=== PATIENT | female | born 1985 | race Native Hawaiian/Other Pacific Islander ===

== ENCOUNTER 2023-01-09 07:39 | Outpatient (CLI) | payer BC, SELFPAY | END 2023-01-09 07:40 | disposition home or self-care (01) | PROVIDERS: PCP Family Medicine; Referring Provider Family Medicine; Visit Provider Family Medicine | DX: Z00.00 Encounter for general adult medical examination without abnormal findings (principal); E66.01 Morbid (severe) obesity due to excess calories; E11.9 Type 2 diabetes mellitus without complications; L30.1 Dyshidrosis [pompholyx]; Z13.6 Encounter for screening for cardiovascular disorders | CPT/HCPCS: 80053; 80061; 82043; 82570 ==

== ENCOUNTER 2024-01-22 06:56 | Outpatient (CLI) | payer BC, SELFPAY ==
--- OUTSIDE RECORDS SUMMARY | 2024-01-22 06:58 | XMS_ITS | Clinical Summary ---
Author Organization [facility] Address [place], [place] [address] Care Team Providers Care Repairer Recreational Vehicle Name Role Phone Provider, Non-[facility] Primary Care Provider Un available Allergies No known active allergies Medications Medication Sig Dispensed Refills Start Date End Date Status VIT/IRON FUMARATE/FA ( 19 ORAL) Take 1 Tab by mouth once daily. Active lanolin (LANSINOH) ointmentIndicatio ns:S/P section Apply peasized amount to entire nipple area after each feeding and leave on, no need to wash off before . 40 g 10/07/2016 Active docusate (COLACE) 100 mg capsuleIndication s:S/P section Take 2 capsules by mouth 2 times daily if needed for Constipation. 100 capsule 10/07/2016 Active HYDROcodone-aceta minophen, 5-325 mg, (NORCO) per tabletIndications :S/P section Take 1 to 2 tablets by mouth every 4 hours if needed for Pain. Max acetaminophen dose: 4000 mg in 24 hrs. 30 tablet 10/07/2016 Active ibuprofen (ADVIL; MOTRIN) 600 mg tabletIndications :S/P section Take 1 tablet by mouth every 6 hours if needed. Maximum of 3200 mg in 24 hours. 30 tablet 10/07/2016 Active Breast Pump - PurchaseIndicatio ns:S/P section As directed. For home use. Length of need: 99 months. Diagnosis: latch difficulty 1 Device 10/07/2016 Active dibucaine 1% topical (NUPERCAINAL) 1 % ointment Apply a pea sized amount to entire nipple area after each feeding and leave on. No need to wash off before . 28 g 10/07/2016 Active Active Problems Problem Noted Date Diagnosed Date S/P section 10/07/2016 Resolved Problems Problem Noted Date Diagnosed Date Resolved Date Previous delivery a ffecting , antepartum 04/15/2014 10/07/2016 Previous delivery, antepartum condition or complication 10/15/2012 10/07/2016 Immunizations Name Administration Dates Next Due Influenza, IIV3 (Age >=3 years) 05/11/2016,03/26 MMR 10/20/2012 Tdap 02/06/2011,11/15/2010 Social History Tobacco Use Types Packs/Day Years Used Date Smoking Tobacco: Never Passive Smoke Exposure: Never Smokeless Tobacco: Never Tobacco Cessation:Counseling Given: Yes Alcohol Use Standard Drinks/Week Comments No 0 (1 standard drink = 0.6 oz pur e alcohol) Sex and Gender Information Value Date Recorded Sex Assigned at Not on file Gender Identity Not on file Sexual Orientation Not on file Obstetrics History Para Term AB IAB SAB Ectopic Multiple Livin g Live Births 5 3 3 0 1 0 1 0 0 3 3 Date Outcome GA Total Labor Labor/2nd/3rd Weight Sex Type Anes PTL Tegan A1 A5 Name Clin 2010 Term 39w 2d 7h 00m/ 3.68 kg (8 lb 1.8 oz) M C-Sect ion Spinal N Livin g 8 9 ERASTO CORRIGAN (IMAN ICA ALBPriyank) A Delivery Location:[facility] Comments:FTD 2011 SAB SPONTA NEOUS Comments:no D&C 2012 Term 39w 1d 3.61 kg (7 lb 15.3 oz) M C-Sect ion Spinal N Livin g 9 9 ERASTO CORRIGAN (IMAN ICA ALBA) Delivery Location:[facility] Comments:Rpt C/S 2013 Term 39w 1d 3.69 kg (8 lb 2.2 oz) [facility] Comments:Rpt C/S Last Filed Vital Signs Vital Sign Reading Time Taken Comments Blood Pressure 140/66 10/08/2023 12:41 AM CDT Pulse 73 10/08/2023 12:41 AM CDT Temperature 37 ??C (98.6 ??F) 10/08/2023 12:41 AM CDT Respiratory Rate 16 10/08/2023 12:41 AM CDT Oxygen Saturation 99% 10/08/2023 12:41 AM CDT Inhaled Oxygen Concentration - - Weight 112.9 kg (249 lb) 10/08/2023 12:41 AM CDT Height 149.9 cm (4' 11) 10/08/2023 12:41 AM CDT Body Mass Index 50.29 10/08/2023 12:41 AM CDT Plan of Treatment Health Maintenance Due Date Last Done Comments Depression screening for age 12+ 1998 HIV for age 15-65 2001 Hepatitis C screening for ag e 18-79 2004 Pap test for age 21-65 12/17/2007 BMI (ht and wt on same day) for age 18+ 06/16/2017 06/16/2016 Tetanus booster 02/06/2021 02/06/2011, 11/15/2010 COVID-19 vaccine series ( season) 2023 Influenza for age 9-49 02/25/2024 6, 03/26/2010 Tdap Completed 02/06/2011, 11/15/2010 Pneumococcal series for age 6-64 Aged Out No longer eligible b ased on patient's age to complete this topic Advance Directives * Full Code (Latest Code Status on File) Date Activated Date Inactivated Comments 10/05/2016 12:25 PM 10/07/2016 3:39 PM * Full Code Date Activated Date Inactivated Comments 10/05/2016 10:40 AM 10/05/2016 12:23 PM * Full Code Date Activated Date Inactivated Comments 10/05/2016 10:10 AM 10/05/2016 10:40 AM * Full Code Date Activated Date Inactivated Comments 04/20/2014 7:24 AM 04/23/2014 2:35 PM * Full Code Date Activated Date Inactivated Comments 04/20/2014 4:45 AM 04/20/2014 7:24 AM Care Teams Repairer Recreational Vehicle Relationship Specialty Start Date End Date Provider, Non-[facility] . PCP - General 10/08/23
== END 2024-01-22 06:57 | disposition home or self-care (01) ==
PROVIDERS: PCP Family Medicine; Visit Provider Family Medicine
DX: Z00.00 Encounter for general adult medical examination without abnormal findings (principal); E66.01 Morbid (severe) obesity due to excess calories; E11.9 Type 2 diabetes mellitus without complications
CPT/HCPCS: 80053; 80061; 82043; 82570

== ENCOUNTER 2025-01-24 07:35 | Outpatient (CLI) | payer BC, SELFPAY | END 2025-01-24 07:36 | disposition home or self-care (01) | LOC: NFLDREF 01-28 16:20 | PROVIDERS: PCP Family Medicine; Referring Provider Family Medicine; Visit Provider Family Medicine | DX: E11.9 Type 2 diabetes mellitus without complications (principal) | CPT/HCPCS: 80053; 80061; 82043; 82570 ==